=== PATIENT | female | born 1975 | race Caucasian/White ===

== ENCOUNTER 2018-06-14 06:10 | Emergency (ER) | payer MEDICAID ==
[~2018-06-14] VITALS: Ht 167.6 cm; Wt 77.1 kg
[2018-06-14 06:15] VITALS: BP 134/68
--- NOTE | 2018-06-14 06:15 | NUR ---
to bed # 2 ambulatory, report given to Tomi Mcguire
--- NOTE | 2018-06-14 06:25 | NUR ---
43/F CAME IN ED, C/O CONSTANT SHARP 9/10 LOWER ABD/SUPRAPUBIC PAIN, X8 DAYS. PT REPORTS VAGINAL BLEEDING. PT DENIES FEVER, N/V/D, CONSTIPATION OR DYSURIA. AOX4, AMBULATORY, RR EVEN AND UNLABORED. LUNG SOUNDS CLEAR BL. BS ACTIVE X4, ABD ROUND SOFT TENDER TO LOWER ABD. PT REPORTS GOING TO A CLINIC 6 DAYS AGO, WAS DX UTI, WAS GIVEN RX BACTRIM AND BENTYL. DENIES MED HX
--- NOTE | 2018-06-14 06:32 | NUR ---
Dr. German evaluating patient at bedside.
[2018-06-14] MEDS ORDERED: KETOROLAC 30 MG/ML VIAL IM ONE (06:40)
[2018-06-14 06:54] LABS: BILIRUBIN,URINE NEGATIVE (NEGATIVE); BLOOD, URINE LARGE (NEGATIVE); LEUKOCYTE ESTERASE ,URINE TRACE (NEGATIVE); NITRITE, URINE POSITIVE (NEGATIVE); UGLUCOSE NEGATIVE (NEGATIVE)
[2018-06-14 06:55] LABS: APPEARANCE,URINE BLOODY (CLEAR)
[2018-06-14 06:56] LABS: COLOR,URINE RED (YELLOW)
[2018-06-14 06:58] LABS: RBC,URINE TOO NUMEROUS TO COUN /HPF (0-5)
[2018-06-14 06:59] LABS: WBC,URINE 6-15 (FEW) /HPF (0-5)
--- NOTE | 2018-06-14 07:10 | NUR ---
Ultrasound at bedside.
--- NOTE | 2018-06-14 07:16 | NUR ---
RECIEVED REPORT FROM ARVIND. US IN PROGRESS,PELVIC
--- NOTE | 2018-06-14 07:24 | NUR ---
PATIENT TOLERATED PROCEDURE. AT BEDSIDE. DENIES DISCOMFORT
--- NOTE | 2018-06-14 07:43 | NUR ---
Dr. Dewitt evaluating patient at bedside.
--- NOTE | 2018-06-14 07:48 | NUR ---
DENIES ABD. PAIN,DENIES N/V AT THIS TIME
[2018-06-14 07:51] LABS: BASOPHILS % (AUTO) 0.5 % (0.0-2.0); EOSINOPHILS # (AUTO) 0.1 K/uL (0-0.4); EOSINOPHILS % (AUTO) 1.6 % (0.0-4.0); HEMATOCRIT 39.9 % (36-48); HEMOGLOBIN 13.3 g/dL (12.0-16.0); LYMPHOCYTES # (AUTO) 2.3 K/uL (2.5-16.5); LYMPHOCYTES % (AUTO) 30.9 % (20.5-51.1); MEAN CORPUSCULAR HEMOGLOBIN 30 pg (27-31); MEAN CORPUSCULAR HGB CONC 33 g/dL (33-37); MEAN CORPUSCULAR VOLUME 89.6 fL (80-94); MONOCYTES # (AUTO) 0.5 K/uL (0.8-1.0); MONOCYTES % (AUTO) 6.3 % (1.7-9.3); NEUTROPHILS # (AUTO) 4.5 K/uL (1.8-7.7); NEUTROPHILS % (AUTO) 60.7 % (42.2-75.2); PLATELET COUNT (AUTO) 304 K/uL (140-450); RED BLOOD CELL COUNT(AUTO) 4.45 MIL/uL (4.20-5.40); RED CELL DISTRIBUTION WIDTH 13.6 % (11.6-13.7); WHITE BLOOD COUNT (AUTO) 7.4 K/uL (4.8-10.8)
--- NOTE | 2018-06-14 08:17 | NUR ---
AWAITING FOR DISPOSITION. DENIES DISCOMFORT
--- NOTE | 2018-06-14 09:18 | NUR ---
REPORT RECV'D FROM RALPH MOREL
[2018-06-14 10:11] VITALS: BP 128/75
== END 2018-06-14 10:12 | disposition home or self-care (01) ==
LOC: MED 06:10
DX: D25.9 Leiomyoma of uterus, unspecified (principal); R03.0 Elevated blood-pressure reading, without diagnosis of hypertension
CPT/HCPCS: 36415; 76856; 81001; 81025; 85025; 87086; 93976; 96372; 99284; J1885; Q0092

== ENCOUNTER 2021-02-03 07:46 | Emergency (ER) | payer MEDICAID, OTHER ==
[~2021-02-03] VITALS: Ht 165.1 cm; Wt 78.0 kg
[2021-02-03 07:56] VITALS: BP 122/68
--- NOTE | 2021-02-03 08:22 | NUR ---
45 YO F C/O BILATERAL BURNING PAIN TO THE FOOT. PT STATED STARTED 1 DAY AGO. PT STATED DISCOLORATION TO FOOT. NOTED THAT PT FOOT DOES NOT HAVE ANY DISCOLORATION, BILATERAL PEDAL PULSES WNL. PT STATED PAIN IS 9/10 COMES AND GOES CONSTANTLY, DOES NOT CHANGE WITH TOUCH OR MOVEMENT. DENIES ANY PMH NKA
[2021-02-03] MEDS ORDERED: KETOROLAC 60 MG/2 ML VIAL IM ONE (09:00)
[2021-02-03] MEDS ORDERED: CIPR500T4 PO (09:34)
[2021-02-03] MEDS ORDERED: IBUP-2213 PO (09:34)
[2021-02-03 09:45] VITALS: BP 122/68
--- NOTE | 2021-02-03 09:46 | NUR ---
Patient discharged with v/s stable. Written and verbal after care instructions given PYELONEPHRITIS AND FOOT PAIN and explained. Patient alert, oriented and verbalized understanding of instructions. Ambulatory with steady gait. All questions addressed prior to discharge. ID band removed. Patient advised to follow up with PMD. Rx of CIPRO 500MG PO BID FOR 10DAYS, AND IBUPROFEN 600MG PO TID PRN PAIN given. Patient educated on indication of medication including possible reaction and side effects. Opportunity to ask questions provided and answered.
== END 2021-02-03 09:46 | disposition home or self-care (01) ==
LOC: MED 07:46
DX: N10 Acute pyelonephritis (principal); M79.671 Pain in right foot; M79.672 Pain in left foot
CPT/HCPCS: 81002; 81025; 96372; 99283; J1885